=== PATIENT | male | born 1945 | race Caucasian/White ===

== ENCOUNTER 2018-08-26 14:18 | Observation (INO) | payer MEDICARE ==
[2018-08-26 15:36] LABS: #Eosinphils 0.2 thou/uL (0.0-0.7); #Lymphocytes 1.2 thou/uL (1.20-3.40); #Monocytes 0.5 thou/uL (0.11-0.59); #Neutrophils 4.7 thou/uL (1.40-6.50); %Basophils 0.4 % (0.0-1.0); %Eosinophils 2.7 % (0.0-10.0); %Lymphocytes 18.5 % (21.0-51.0); %Monocytes 7.5 % (0.0-10.0); Hemoglobin 13.7 g/dL (14.0-18.0); Mean Corpuscular HGB CONC 34.1 g/dL (32.0-36.0); Mean Corpuscular Hemoglobin 32.4 pg (27.0-31.0); Mean Platelet Volume 8.4 fL (7.4-10.4); Platelet Count 121 thou/uL (130-400); RBC Distribution Width 13.6 % (11.5-14.5); Red Blood Cell (RBC) Count 4.21 mill/uL (4.70-6.10); White Blood Cell (WBC) Count 6.7 thou/uL (4.8-10.8)
[2018-08-26 15:56] LABS: ALT (SGPT) 25 U/L (8-55); AST (SGOT) 26 U/L (5-34); Albumin 4.2 g/dL (3.4-4.8); Alkaline Phosphatase 68 U/L (40-150); Anion Gap 13 mmol/L (10-20); BUN (Urea Nitrogen) 27 mg/dL (8.4-25.7); Bilirubin, Total 1.3 mg/dL (0.2-1.2); CK (CPK) 76 U/L (30-200); Calc. Creatinine Clearance 0 mL/min (70-130); Carbon Dioxide 23 mmol/L (23-31); Chloride 108 mmol/L (98-107); Estimated GFR-MDRD 73; Globulin 2.4 g/dL (2.4-3.5); Glucose 94 mg/dL (83-110); Potassium 3.7 mmol/L (3.5-5.1); Protein, Total 6.6 g/dL (5.8-8.1); Sodium 140 mmol/L (136-145)
[2018-08-26 16:00] LABS: Troponin I Less than 0.010 ng/mL (< 0.028)
[2018-08-26] MEDS ORDERED: Ondansetron ODT 4 MG TAB SL PRN (19:09)
[2018-08-26] MEDS ORDERED: Acetaminophen 325 MG TAB PO PRN (19:09)
[2018-08-26] MEDS ORDERED: Ondansetron PF 4 MG/2 ML Vial IVP PRN (19:09)
[2018-08-26] MEDS ORDERED: Senokot S 8.6-50 MG TAB PO PRN (21:47)
[2018-08-26] MEDS ORDERED: Bisacodyl 5 MG TAB PO PRN (21:47)
[2018-08-26 23:13] VITALS: BMI 31.4
[2018-08-27 06:44] LABS: #Basophils 0.1 thou/uL (0.0-0.2); #Eosinphils 0.4 thou/uL (0.0-0.7); #Monocytes 0.3 thou/uL (0.11-0.59); #Neutrophils 3.3 thou/uL (1.40-6.50); %Basophils 1.1 % (0.0-1.0); %Eosinophils 7.5 % (0.0-10.0); %Lymphocytes 19.2 % (21.0-51.0); %Monocytes 6.4 % (0.0-10.0); %Neutrophils 65.8 % (42.0-75.0); Hemoglobin 13.2 g/dL (14.0-18.0); Mean Corpuscular HGB CONC 33.6 g/dL (32.0-36.0); Mean Corpuscular Volume 95.2 fL (78.0-98.0); Mean Platelet Volume 9.2 fL (7.4-10.4); Platelet Count 113 thou/uL (130-400); RBC Distribution Width 13.6 % (11.5-14.5); Red Blood Cell (RBC) Count 4.14 mill/uL (4.70-6.10)
[2018-08-27 06:53] LABS: Anion Gap 10 mmol/L (10-20); BUN (Urea Nitrogen) 18 mg/dL (8.4-25.7); Calc. Creatinine Clearance 102 mL/min (70-130); Carbon Dioxide 27 mmol/L (23-31); Chloride 106 mmol/L (98-107); Estimated GFR-MDRD 86; Glucose 94 mg/dL (83-110); Potassium 3.9 mmol/L (3.5-5.1); Sodium 139 mmol/L (136-145)
[2018-08-27 07:49] VITALS: TEMP 98.4
[2018-08-27] MEDS ORDERED: ADENOSINE 60 MG/20 ML VIAL ONE (08:03)
[2018-08-27] MEDS ORDERED: Enoxaparin Sodium 40 MG/0.4 ML SYRINGE SC SCH (09:00)
[2018-08-27] MEDS: Acetaminophen 325 MG TAB PO PRN ×2 (10:43→16:46)
--- NOTE | 2018-08-27 15:55 | NM ---
RADIONUCLIDE STRESS AND REST MYOCARDIAL PERFUSION SCAN WITH CT ATTENUATION CORRECTION AND SPECT IMAGI NG WITH LEFT VENTRICULAR WALL MOTION EVALUATION AND EJECTION FRACTION: HISTORY: Chest pain. FINDINGS: Adenosine protocol. There is homogeneous uptake of radiotracer throughout the left ventricular myocardium. No focal perfu carmencita defect or reversibility. QGS analysis of gated SPECT images shows no focal wall motion abnormalities. Ejection fraction is 52% . IMPRESSION: 1. Normal myocardial perfusion scan showing no evidence of ischemia. 2. Borderline left ventricular ejection fraction of 52%. POS: REBECCA
[2018-08-27 16:05] VITALS: BP 140/62
--- NOTE | 2018-08-29 11:10 | STRESS ---
Acquisition Time: 2018-08-27 13:11:05 Total Exercise Time: 00:04:00 Test Indications: RICKS AND FATIGUE Medications: Protocol: ADENOSINE Max HR: 076 BPM 52% of Pred: 145 BPM Max BP: 150/080 mmHG Max Work Load: 1.0 METS RESTING ECG: NORMAL SINUS RHYTHM AT 66 BPM WITH COMPLETE RBBB SYMPTOMS: NONE APPROPRIATE BP RESPONSE FOR ADENOSINE ECTOPY: OCCASIONAL PVCS ECG STRESS: NO SIGNIFICANT CHANGES INTERPRETATION: AWAIT NUCLEAR IMAGES FOR DEFINITIVE DIAGNOSIS Confirmed by CARMELO RUST ([id number]), news video editor BONNIE IYER ([id number]) on 08/29/2018 11:10:20 AM Referred By: Confirmed By:CARMELO RUST
--- NOTE | 2018-09-11 15:42 | EKG ---
Test Reason : Blood Pressure : / mmHG Vent. Rate : 070 BPM Atrial Rate : 070 BPM P-R Int : 218 ms QRS Dur : 150 ms QT Int : 446 ms P-R-T Axes : 004 -45 -02 degrees QTc Int : 481 ms Sinus rhythm with 1st degree A-V block Right bundle branch block Left anterior fascicular block Bifascicular block Abnormal ECG Confirmed by ONEIL MARTINEZ ([id number]), news videotape editor HIRAL VELIZ ([id number]) on 09/11/2018 3:41:46 PM Referred By: Confirmed By:ONEIL MARTINEZ
== END 2018-08-27 17:45 | disposition home or self-care (01) ==
LOC: ERS 14:18 → 2SW 18:05 → ERS 18:45
PROVIDERS: ADMIT Internal Medicine; ATTEND Internal Medicine
DX: R00.1 Bradycardia, unspecified (principal); G47.30 Sleep apnea, unspecified; I10 Essential (primary) hypertension; Z88.0 Allergy status to penicillin; Z88.2 Allergy status to sulfonamides; R07.89 Other chest pain
CPT/HCPCS: 78452; 80048; 80053; 82550; 82553; 83880; 84443; 84484 ×2; 85025 ×2; 93005; 93017; 94760; 96372; 97139; 99285; A9500; G0378 ×2; 36415; J0153; J1650